=== PATIENT | female | born 1995 | race American Indian/Alaskan Native ===

== ENCOUNTER 2018-03-06 12:08 | Outpatient (CLI) | payer MEDICAID ==
[2018-03-06 13:08] VITALS: BP 99/58
[2018-03-06] MEDS ORDERED: LACTATED RINGERS 500 ML IV ONE (14:15)
[2018-03-06] MEDS ORDERED: ZOFRAN IV ONE (14:35)
[2018-03-06 14:44] LABS: Basophils % (Auto) 0.4 % (0.0-1.8); Eosinophils % (Auto) 0.2 % (0.0-4.3); Lymphocytes # (Auto) 1.9 K/mm3 (1.2-5.4); Lymphocytes % (Auto) 25.2 % (13.4-35.0); Mean Corpuscular HGB Conc 31 % (30-34); Mean Corpuscular Volume 76 fl (79-97); Monocytes # (Auto) 0.4 K/mm3 (0.0-0.8); Monocytes % (Auto) 5.2 % (0.0-7.3); Platelet Count 248 K/mm3 (140-440); Red Blood Count 4.96 M/mm3 (3.65-5.03); Red Cell Distribution Width 15.5 % (13.2-15.2)
[2018-03-06 14:44] LABS: Bacteria,Urine 1+ /HPF (Negative); Bilirubin,Urine NEG (Negative); Blood,Urine NEG (Negative); Color,Urine Yellow (Yellow); Mucus,Urine FEW /HPF; Protein,Urine <15 mg/dL mg/dL (Negative); Urobilinogen,Urine < 2.0 mg/dL (<2.0)
[2018-03-06 14:45] LABS: Hematocrit 37.6 % (30.3-42.9); Hemoglobin 11.5 gm/dl (10.1-14.3); Mean Corpuscular Hemoglobin 23 pg (28-32)
[2018-03-06 14:57] LABS: BUN/Creatinine Ratio 14; Blood Urea Nitrogen 7 mg/dL (7-17); Calcium 9.2 mg/dL (8.4-10.2); Hemolysis Index 181
== END 2018-03-06 16:05 | disposition home or self-care (01) ==
LOC: ED 12:08 → TRG 12:08 → EDSTATUS 12:36 → TRG 12:38
PROVIDERS: ATTEND Obstetrics & Gynecology
DX: O26.892 Other specified pregnancy related conditions, second trimester (principal); R52 Pain, unspecified; Z3A.23 23 weeks gestation of pregnancy
CPT/HCPCS: 36415; 59025; 80048; 81001; 85025; 96360; 96361; 96365; J2405